=== PATIENT | male | born 1995 | race African-American/Black ===

== ENCOUNTER 2021-03-29 13:14 | Emergency (ER) | payer BC, SELFPAY ==
[2021-03-29 13:24] VITALS: BP 145/78; PULSE 59; RESP 16; TEMP 36.8; O2SAT 100
--- NOTE | 2021-03-29 13:43 | ED.URI ---
HPI - URI/Sore Throat General Chief Complaint: Upper Respiratory Infection Stated Complaint: Sore Throat Time Seen by Provider: 03/29/21 13:43 Source: patient Mode of arrival: ambulatory Limitations: no limitations History of Present Illness HPI Narrative: London Hayes is a 25 yo male with ADHD comes to [facility] for evaluation of sore throat that started 3 to 4 days ago. States he has problems swallowing but has not been running a fever as far as he knows, denies any other illnesses that would contribute to his sore throat Related Data Home Medications Medication Instructions Recorded Confirmed Vyvanse 03/29/21 Allergies Allergy/AdvReac Type Severity Reaction Status Date / Time Penicillins Allergy Unknown Verified 03/29/21 13:29 Review of Systems Review of Systems: Narrative: CONSTITUTIONAL: Denies fever, chills, sweats. EYES: Denies visual changes, redness, discharge. ENT: Denies rhinorrhea, has congestion, has sore throat, no otalgia. CARDIOVASCULAR: Denies chest pain, palpitations, edema. RESPIRATORY: Denies dyspnea, wheezing, cough GASTROINTESTINAL: Denies abdominal pain, nausea, vomiting, diarrhea. GENITOURINARY: Denies dysuria, hematuria, abnormal discharge SKIN: Denies rash or itching. NEUROLOGIC: Denies numbness, or focal weakness. PSYCHIATRIC: Denies anxiety or depression. PMFSH Past Medical History Medical History No acute medical problems Family History Family History Other No acute medical problems Social History Social History Smoking status: Never smoker Alcohol intake: never Comments At time of signature, I agree with nursing past medical, surgical, social and family history. There is no relevant family history pertinent to the presenting complaint. Blood pressure is elevated at this visit will be referred back to primary care physician Exam Narrative: Exam Narrative: GENERAL: This is a well-nourished, well-developed patient, in mild distress. HEAD: normocephalic, atraumatic. EYES: Sclera clear/white. Vision is grossly intact. EARS: External ears normal, auditory canals clear and without drainage, TMs normal without perforation. Hearing grossly intact. NOSE: External nose normal without nasal discharge, nares with redness, no rhinorrhea. THROAT: Mucous membranes moist, posterior pharynx erythema with no exudate NECK: Neck supple, mildly-tender CARDIOVASCULAR: Regular rate and rhythm without murmurs, gallops, or rubs. RESPIRATORY: Clear to auscultation. Breath sounds equal bilaterally. No wheezes, rales, or rhonchi. GASTROINTESTINAL: Abdomen soft, non-tender, SKIN: warm, intact with no suspicious lesions or rash, good texture and turgor. NEURO: awake, alert, and oriented to person, place and time. There were no obvious focal neurologic abnormalities. Steady gait EXTREMITIES: Normal range of motion. BACK: Nontender without deformity Course Course Emergency Course: Patient comes to [facility] with complaints of sore throat x4 to 5 days, he is a non-smoker, states that he has difficulty swallowing but otherwise is febrile Strep test-negative Started on prednisone and viscous lidocaine as well as Zyrtec to take ibuprofen for pain Vital Signs Vital signs: Vital Signs Temperature 98.2 F 03/29/21 13:24 Pulse Rate 59 L 03/29/21 13:24 Respiratory Rate 16 03/29/21 13:24 Blood Pressure 145/78 H 03/29/21 13:24 Pulse Oximetry 100 03/29/21 13:24 Temperature 98.2 F 03/29/21 13:24 Pulse Rate 59 L 03/29/21 13:24 Respiratory Rate 16 03/29/21 13:24 Blood Pressure 145/78 H 03/29/21 13:24 Pulse Oximetry 100 03/29/21 13:24 MDM - URI/Sore Throat Differential Diagnosis Differential diagnosis: Likely upper respiratory infection, otitis media, sinusitis, pharyngitis and other Lab Data La
== END 2021-03-29 14:03 | disposition home or self-care (01) ==
PROVIDERS: Emergency Provider Nurse Practitioner
DX: J02.9 Acute pharyngitis, unspecified (principal)
CPT/HCPCS: 87081; 87880; 99213; G0463